=== PATIENT | male | born 1950 | race African-American/Black ===

== ENCOUNTER 2017-06-06 14:13 | Inpatient (IN) ==
[2017-06-06] MEDS ORDERED: ACETAMINOPHEN 325 MG TABLET PO PRN (14:20)
[2017-06-06] MEDS ORDERED: DOCUSATE SODIUM 100 MG CAPSULE PO PRN (14:20)
[2017-06-06 16:24] LABS: Basophils % 0.3 % (0.0-0.8); Eosinophils % 0.4 % (0.00-10.9); Hematocrit 45.9 VOL% (42.0-52.0); Hemoglobin 15.1 GM/DL (14.0-18.0); Immature Granulocytes % 0.3 %; Immature Granulocytes Absolute 0.03 #; Lymphocytes # 2.1 10*3/uL (1.4-4.0); Lymphocytes % 23.8 % (21.2-54.2); Mean Corpuscular HGB Conc 32.9 GM/DL (32-36); Mean Corpuscular Hemoglobin 30 PG (27-34); Mean Platelet Volume 11.5 FL (9.6-12.0); Monocytes % 11.1 % (1.7-12.7); Neutrophils # 5.8 10*3/uL (1.4-7.4); Neutrophils % 64.1 % (38.7-73.9); Platelet Count 219 T/CUMM (130-400); Red Cell Distribution Width 15.6 % (9.3-17.3)
[2017-06-06 16:55] LABS: Albumin 3.5 G/DL (3.4-5.0); Bilirubin,Total 0.9 MG/DL (0.2-1.0); Calcium 9.6 MG/DL (8.5-10.1); Osmolality,Calculated 280.4 MOS/KG (273-304); Potassium 4.5 MMOL/L (3.5-5.1); Thyroid Stimulating Hormone 1.78 uIU/ml (0.358-3.74); Total Protein 7.4 G/DL (6.4-8.3)
[2017-06-06 17:10] LABS: Apearance,Urine Slightly Hazy (Clear); Bilirubin,Urine Negative (Negative); Blood, Urine Negative (Negative); Glucose,Urine (UA) Negative (Negative); Ketones,Urine 5 mg/dL (Negative); Mucus,Urine Occasional /LPF (Occasional); Nitrite,Urine Negative (Negative); Protein,Urine Negative; RBC,Urine <1 /HPF (0-4); Squamous Epithelial Cell,Urine Occasional /HPF (0-10); Urine Color Yellow (Yellow); Urine Specific Gravity 1.012 (1.001-1.035); Urine Urobilinogen < 2.0 EU/DL (0.2-1.0); WBC,Urine 2 /HPF (0-6)
[2017-06-06] MEDS ORDERED: DILTIAZEM INJ 100 MG in SODIUM CHLORIDE 0.9% 100 ML IV SCH (18:00)
[2017-06-06 18:08] LABS: CKMB % 1.4 %
[2017-06-06 18:10] LABS: Troponin I Only 0.08 NG/ML (0.00-0.045)
[2017-06-06] MEDS: FUROSEMIDE 40 MG/4 ML VIAL IV SCH (18:11)
[2017-06-06] MEDS: METOPROLOL TARTRATE 25 MG TABLET PO SCH (21:11)
[2017-06-06] MEDS: APIXABAN 5 MG TABLET PO SCH (21:11)
[2017-06-07 04:51] LABS: Basophils % 0.5 % (0.0-0.8); Eosinophils # 0.1 10*3/uL (0.0-0.87); Eosinophils % 1.2 % (0.00-10.9); Hematocrit 40.3 VOL% (42.0-52.0); Hemoglobin 13.2 GM/DL (14.0-18.0); Immature Granulocytes % 0.2 %; Immature Granulocytes Absolute 0.01 #; Lymphocytes % 30.5 % (21.2-54.2); Mean Corpuscular HGB Conc 32.8 GM/DL (32-36); Mean Corpuscular Hemoglobin 30 PG (27-34); Mean Corpuscular Volume 90.6 FL (87-102); Mean Platelet Volume 11.2 FL (9.6-12.0); Monocytes # 0.7 10*3/uL (0.11-0.8); Monocytes % 11.1 % (1.7-12.7); Neutrophils # 3.7 10*3/uL (1.4-7.4); Neutrophils % 56.5 % (38.7-73.9); Platelet Count 201 T/CUMM (130-400); Red Blood Count 4.45 MC/CUMM (3.8-5.5); Red Cell Distribution Width 15.3 % (9.3-17.3); White Blood Count 6.6 T/CUMM (4-12)
[2017-06-07 05:22] LABS: Calcium 9.3 MG/DL (8.5-10.1); Potassium 4.2 MMOL/L (3.5-5.1)
[2017-06-07] MEDS: COENZYME Q10 100 MG CAPSULE PO SCH (10:22)
[2017-06-07] MEDS: LISINOPRIL 2.5 MG TABLET PO SCH (10:22)
[2017-06-07] MEDS: CYANOCOBALAMIN 100 MCG TABLET PO SCH (10:22)
[2017-06-07] MEDS: ASPIRIN CHEW 81 MG TABLET PO SCH (10:22)
[2017-06-07] MEDS: PANTOPRAZOLE 40 MG TABLET PO SCH (10:23)
[2017-06-07] MEDS: METOPROLOL TARTRATE 25 MG TABLET PO SCH ×2 (10:23→21:33)
[2017-06-07] MEDS: FUROSEMIDE 40 MG/4 ML VIAL IV SCH (10:23)
[2017-06-07] MEDS: MULTIVITAMIN (CENTRUM) TABLET PO SCH (10:23)
[2017-06-07] MEDS: FUROSEMIDE 40 MG TABLET PO SCH (10:23)
[2017-06-07] MEDS: APIXABAN 5 MG TABLET PO SCH ×2 (10:23→21:33)
[2017-06-07] MEDS ORDERED: PROPOFOL 200 MG/20 ML VIAL IV ONE (13:59)
[2017-06-07] MEDS: FAMOTIDINE 20 MG TABLET PO PRN ×2 (16:40→21:33)
[2017-06-07] MEDS: ALUMINUM/MAGNES/SIMETH MAX STR 30 ML UDCUP PO PRN ×2 (16:40→21:33)
[2017-06-08 05:12] LABS: Basophils % 0.5 % (0.0-0.8); Eosinophils # 0.1 10*3/uL (0.0-0.87); Eosinophils % 1.8 % (0.00-10.9); Hematocrit 40.7 VOL% (42.0-52.0); Lymphocytes # 2.1 10*3/uL (1.4-4.0); Lymphocytes % 34.9 % (21.2-54.2); Mean Corpuscular HGB Conc 31.9 GM/DL (32-36); Mean Corpuscular Hemoglobin 29 PG (27-34); Mean Corpuscular Volume 90.4 FL (87-102); Mean Platelet Volume 10.8 FL (9.6-12.0); Monocytes # 0.6 10*3/uL (0.11-0.8); Monocytes % 9.8 % (1.7-12.7); Neutrophils # 3.3 10*3/uL (1.4-7.4); Platelet Count 199 T/CUMM (130-400); Red Cell Distribution Width 15.2 % (9.3-17.3); White Blood Count 6.1 T/CUMM (4-12)
[2017-06-08 05:46] LABS: Calcium 9.2 MG/DL (8.5-10.1); Osmolality,Calculated 284.3 MOS/KG (273-304)
[2017-06-08] MEDS: LISINOPRIL 2.5 MG TABLET PO SCH (09:27)
[2017-06-08] MEDS: COENZYME Q10 100 MG CAPSULE PO SCH (09:27)
[2017-06-08] MEDS: ASPIRIN CHEW 81 MG TABLET PO SCH (09:27)
[2017-06-08] MEDS: PANTOPRAZOLE 40 MG TABLET PO SCH (09:28)
[2017-06-08] MEDS: FUROSEMIDE 40 MG TABLET PO SCH (09:28)
[2017-06-08] MEDS: METOPROLOL TARTRATE 25 MG TABLET PO SCH (09:28)
[2017-06-08] MEDS: APIXABAN 5 MG TABLET PO SCH (09:28)
[2017-06-08] MEDS: MULTIVITAMIN (CENTRUM) TABLET PO SCH (09:28)
[2017-06-08] MEDS: CYANOCOBALAMIN 100 MCG TABLET PO SCH (09:28)
[2017-06-08 11:40] VITALS: BP 126/85
[2017-06-08] MEDS ORDERED: FUROSEMIDE 40 MG TABLET PO SCH (12:00)
== END 2017-06-08 14:44 | disposition home or self-care (01) | DRG 308 ==
LOC: N.TELES 14:39
PROVIDERS: ADMIT Internal Medicine Pulmonary Disease; ATTEND Internal Medicine Pulmonary Disease

== ENCOUNTER 2017-08-22 09:37 | Inpatient (IN) ==
[~2017-08-22 09:37] MED LIST: DEXTROSE 50% 25 GM/50 ML VIAL IV PRN; GLUCAGON 1 MG VIAL IM PRN; UBIDECARENONE 50 MG PO SCH
[2017-08-22 10:31] LABS: Basophils % 0.1 % (0.0-0.8); Eosinophils % 0.4 % (0.00-10.9); Hematocrit 36.2 VOL% (42.0-52.0); Immature Granulocytes % 0.3 %; Immature Granulocytes Absolute 0.02 #; Lymphocytes # 0.9 10*3/uL (1.4-4.0); Lymphocytes % 11.7 % (21.2-54.2); Mean Corpuscular HGB Conc 33.1 GM/DL (32-36); Mean Corpuscular Hemoglobin 29 PG (27-34); Mean Corpuscular Volume 87.4 FL (87-102); Mean Platelet Volume 10.7 FL (9.6-12.0); Monocytes # 0.5 10*3/uL (0.11-0.8); Monocytes % 7.2 % (1.7-12.7); Neutrophils % 80.3 % (38.7-73.9); Platelet Count 172 T/CUMM (130-400); Red Blood Count 4.14 MC/CUMM (3.8-5.5); Red Cell Distribution Width 14.2 % (9.3-17.3); White Blood Count 7.5 T/CUMM (4-12)
[2017-08-22 11:03] LABS: Albumin 2.9 G/DL (3.4-5.0); Bilirubin,Total 0.5 MG/DL (0.2-1.0); Calcium 9.7 MG/DL (8.5-10.1); Osmolality,Calculated 276.7 MOS/KG (273-304); Potassium 3.8 MMOL/L (3.5-5.1); Total Protein 7.8 G/DL (6.4-8.3)
[2017-08-22] MEDS: CHLORHEXIDINE 0.12% ORAL RINSE 60 ML BOTTLE SWISH/SPIT SCH ×2 (11:53→21:21)
[2017-08-22] MEDS: sitaGLIPtin 100 MG TABLET PO SCH (11:59)
[2017-08-22] MEDS: PANTOPRAZOLE 40 MG TABLET PO SCH (11:59)
[2017-08-22] MEDS: LISINOPRIL 2.5 MG TABLET PO SCH (11:59)
[2017-08-22] MEDS: CYANOCOBALAMIN 100 MCG TABLET PO SCH (14:00)
[2017-08-22] MEDS: MULTIVITAMIN (CENTRUM) TABLET PO SCH (14:00)
[2017-08-22 15:17] LABS: ABG Base Excess 1.7 MMOL/L (-2.5-2.5); ABG HCO3 25.9 MMOL/L (20-26); ABG Oxygen Saturation 96.4 % (95-100); ABG PCO2 38.5 MM HG (35-48); ABG PH 7.435 (7.35-7.45); ABG PO2 89.6 MM HG (80-95); ABG TCO2 22.7 MMOL/L (23-27)
[2017-08-22] MEDS: CHLORHEXIDINE 4% SOLN 118 ML BOTTLE TOP SCH ×2 (17:03→21:21)
[2017-08-22] MEDS ORDERED: ASPIRIN EC 81 MG TABLET PO SCH (21:00)
[2017-08-22] MEDS: METOPROLOL TARTRATE 25 MG TABLET PO SCH (21:21)
[2017-08-23] MEDS: CHLORHEXIDINE 4% SOLN 118 ML BOTTLE TOP SCH ×2 (04:59→09:13)
[2017-08-23] MEDS ORDERED: VANCOMYCIN 1,000 MG VIAL ONE (05:19)
[2017-08-23] MEDS ORDERED: PAPAVERINE 60 MG/2 ML VIAL ONE (05:19)
[2017-08-23] MEDS ORDERED: DIAZEPAM 5 MG TABLET ONE (05:35)
[2017-08-23] MEDS ORDERED: FAMOTIDINE 20 MG TABLET ONE (05:36)
[2017-08-23] MEDS: LISINOPRIL 2.5 MG TABLET PO SCH ×2 (05:41→09:13)
[2017-08-23] MEDS: METOPROLOL TARTRATE 25 MG TABLET PO SCH ×2 (05:41→09:13)
[2017-08-23] MEDS: PANTOPRAZOLE 40 MG TABLET PO SCH ×2 (05:41→09:13)
[2017-08-23] MEDS: CHLORHEXIDINE 0.12% ORAL RINSE 60 ML BOTTLE SWISH/SPIT SCH ×3 (05:42→21:01)
[2017-08-23] MEDS ORDERED: CEFUROXIME INJ 1,500 MG in SYRINGE 1 EACH IV ONE (06:30)
[2017-08-23] MEDS ORDERED: DIAZEPAM 5 MG TABLET PO ONE (07:00)
[2017-08-23] MEDS ORDERED: FAMOTIDINE 20 MG TABLET PO ONE (07:00)
[2017-08-23 07:35] LABS: ABG Base Excess 1.1 MMOL/L (-2.5-2.5); ABG HCO3 25.4 MMOL/L (20-26); ABG Oxygen Saturation 99.5 % (95-100); ABG PCO2 31.4 MM HG (35-48); ABG PH 7.488 (7.35-7.45); ABG TCO2 21.2 MMOL/L (23-27); Glucose Heart Surgery 112 MG/DL (74-106); Hematocrit Heart Surgery 34.6 PERCENT (42-52); Hemoglobin Heart Surgery 11.2 G/DL (14.0-18.0); Ionized Calcium Arterial 1.23 MMOL/L (1.21-1.46); PCO2 Patient Temp Arterial 31.4 MMHG; PH Patient Temp Arterial 7.488; Patient Temperature 37 CELCIUS; Potassium Heart/CVR 3.5 MMOL/L (3.5-5.1); Sodium Heart/CVR 136 MMOL/L (135-145)
[2017-08-23 08:02] LABS: Apearance,Urine CLEAR (Clear); Bilirubin,Urine Negative (Negative); Blood, Urine Negative (Negative); Glucose,Urine (UA) Negative (Negative); Ketones,Urine Negative (Negative); Mucus,Urine Occasional /LPF (Occasional); Nitrite,Urine Negative (Negative); Protein,Urine Negative; RBC,Urine 1 /HPF (0-4); Squamous Epithelial Cell,Urine Occasional /HPF (0-10); Urine Color Yellow (Yellow); Urine Specific Gravity 1.016 (1.001-1.035); Urine Urobilinogen < 2.0 EU/DL (0.2-1.0); WBC,Urine 3 /HPF (0-6)
[2017-08-23] MEDS ORDERED: NITROPRUSSIDE 50 MG/2 ML VIAL ONE (08:12)
[2017-08-23] MEDS ORDERED: POTASSIUM CHLORIDE RIDER 100 ML IV ONE (08:14)
[2017-08-23] MEDS ORDERED: PHENYLEPHRINE DRIP 40 MG/250 ML PREMIX IV ONE (08:14)
[2017-08-23] MEDS: SODIUM CHLORIDE 0.9% 1,000 ML IV SCH ×2 (09:12→09:14)
[2017-08-23] MEDS: CYANOCOBALAMIN 100 MCG TABLET PO SCH (09:13)
[2017-08-23] MEDS: sitaGLIPtin 100 MG TABLET PO SCH (09:13)
[2017-08-23] MEDS: MULTIVITAMIN (CENTRUM) TABLET PO SCH (09:13)
[2017-08-23 09:25] LABS: Hematocrit Heart Surgery 23.2 PERCENT (42-52); Hemoglobin Heart Surgery 7.4 G/DL (14.0-18.0); PCO2 Patient Temp Venous 31.1 MM HG; PH Patient Temp Venous 7.49; PO2 Patient Temp Venous 39.2 MM HG; Potassium Heart/CVR 4.1 MMOL/L (3.5-5.1); VBG Base Excess 0.8 MEQ/L (0-4); VBG HCO3 24.9 MEQ/L (24-28); VBG Oxygen Saturation 81.7 %; VBG PCO2 34.3 MMHG (41-51); VBG PH 7.46
[2017-08-23 09:57] LABS: Hematocrit Heart Surgery 25.5 PERCENT (42-52); Hemoglobin Heart Surgery 8.2 G/DL (14.0-18.0); PCO2 Patient Temp Venous 29.7 MM HG; PH Patient Temp Venous 7.506; PO2 Patient Temp Venous 36.8 MM HG; Potassium Heart/CVR 3.7 MMOL/L (3.5-5.1); VBG Base Excess 0.9 MEQ/L (0-4); VBG Oxygen Saturation 81.7 %; VBG PCO2 34.3 MMHG (41-51); VBG PH 7.461; VBG PO2 45.2 MMHG (17-40)
[2017-08-23] MEDS ORDERED: SODIUM BICARBONATE 50 MEQ/50 ML SYRINGE IV ONE ×2 (09:58→10:54)
[2017-08-23] MEDS ORDERED: EPINEPHrine 1 MG/10 ML SYRINGE ONE (09:59)
[2017-08-23] MEDS ORDERED: ATROPINE 1 MG/10 ML SYRINGE ONE (09:59)
[2017-08-23] MEDS ORDERED: CALCIUM CHLORIDE 1,000 MG/10 ML SYRINGE IV ONE (09:59)
[2017-08-23] MEDS ORDERED: ALBUMIN 5% 12.5 GM/250 ML VIAL IV ONE (10:14)
[2017-08-23 10:29] LABS: Hematocrit Heart Surgery 26.9 PERCENT (42-52); Hemoglobin Heart Surgery 8.7 G/DL (14.0-18.0); PCO2 Patient Temp Venous 34.5 MM HG; PH Patient Temp Venous 7.466; PO2 Patient Temp Venous 40.3 MM HG; VBG Base Excess 1.4 MEQ/L (0-4); VBG HCO3 25.3 MEQ/L (24-28); VBG Oxygen Saturation 74.8 %; VBG PCO2 34.5 MMHG (41-51); VBG PH 7.466; VBG PO2 40.3 MMHG (17-40)
[2017-08-23] MEDS ORDERED: ALBUMIN 25% 25 GM/100 ML VIAL IV ONE (10:52)
[2017-08-23] MEDS ORDERED: DEXTROSE 5% KCL 20 MEQ 20 MEQ/1,000 ML BAG IV ONE (10:52)
[2017-08-23] MEDS ORDERED: HEPARIN 10,000 UNIT/10 ML VIAL ONE (10:52)
[2017-08-23] MEDS ORDERED: FUROSEMIDE 20 MG/2 ML VIAL ONE (10:54)
[2017-08-23] MEDS ORDERED: MAGNESIUM SULFATE 1 GM/2 ML VIAL ONE (10:54)
[2017-08-23] MEDS ORDERED: MANNITOL 12.5 GM/50 ML VIAL IV ONE (10:54)
[2017-08-23] MEDS ORDERED: methylPREDNISolone SOD SUC 1,000 MG/8 ML VIAL ONE (10:54)
[2017-08-23] MEDS ORDERED: PROTAMINE SULFATE 50 MG/5 ML VIAL IV ONE ×3 (10:54→12:10)
[2017-08-23] MEDS ORDERED: PROTAMINE SULFATE 250 MG/25 ML VIAL IV ONE (10:54)
[2017-08-23] MEDS ORDERED: PHENYLEPHRINE 1 MG/10 ML SYRINGE IV ONE (10:55)
[2017-08-23 10:59] LABS: ABG Base Excess 0.1 MMOL/L (-2.5-2.5); ABG HCO3 24.5 MMOL/L (20-26); ABG Oxygen Saturation 99.5 % (95-100); ABG PCO2 34.7 MM HG (35-48); ABG PH 7.444 (7.35-7.45); ABG TCO2 21.8 MMOL/L (23-27); Glucose Heart Surgery 224 MG/DL (74-106); Hematocrit Heart Surgery 28.8 PERCENT (42-52); Hemoglobin Heart Surgery 9.3 G/DL (14.0-18.0); Ionized Calcium Arterial 1.31 MMOL/L (1.21-1.46); PCO2 Patient Temp Arterial 34.7 MMHG; PH Patient Temp Arterial 7.444; Patient Temperature 37 CELCIUS; Potassium Heart/CVR 3.6 MMOL/L (3.5-5.1); Sodium Heart/CVR 135 MMOL/L (135-145)
[2017-08-23] MEDS ORDERED: NITROGLYCERIN DRIP 50 MG/250 ML BOTTLE IV ONE ×2 (11:34→11:59)
[2017-08-23] MEDS: LACTATED RINGERS 250 ML IV PRN ×11 (11:50→17:00)
[2017-08-23] MEDS ORDERED: HEPARIN/NACL 0.9% 2 UNITS/ML 500 ML IV ONE (11:57)
[2017-08-23] MEDS ORDERED: CALCIUM CHLORIDE 1,000 MG/10 ML VIAL IV ONE (11:57)
[2017-08-23] MEDS ORDERED: SUFentanil 250 MCG/5 ML AMP ONE ×2 (11:57→11:58)
[2017-08-23] MEDS ORDERED: SEVOFLURANE 1 UNIT/15 MINUTE INH ONE (11:57)
[2017-08-23] MEDS ORDERED: MIDAZOLAM 10 MG/2 ML VIAL ONE (11:58)
[2017-08-23] MEDS ORDERED: VECURONIUM 10 MG VIAL IV ONE (11:58)
[2017-08-23] MEDS ORDERED: ePHEDrine 50 MG/ML AMP ONE (11:58)
[2017-08-23] MEDS ORDERED: PHENYLEPHRINE 10 MG/1 ML VIAL IV ONE (11:58)
[2017-08-23] MEDS ORDERED: ETOMIDATE 40 MG/20 ML VIAL IV ONE (11:59)
[2017-08-23] MEDS ORDERED: ACETAMINOPHEN 650 MG SUPP RECTAL PRN (11:59)
[2017-08-23] MEDS ORDERED: VECURONIUM 10 MG VIAL IV PRN ×2 (11:59)
[2017-08-23] MEDS ORDERED: MAGNESIUM SULF RIDER 4 GM in PREMIX 1 EACH IV PRN (11:59)
[2017-08-23] MEDS ORDERED: ONDANSETRON 4 MG/2 ML VIAL IV PRN (11:59)
[2017-08-23] MEDS ORDERED: MORPHINE 4 MG/1 ML VIAL IV PRN (11:59)
[2017-08-23] MEDS ORDERED: MORPHINE 10 MG/1 ML VIAL IV PRN (11:59)
[2017-08-23] MEDS ORDERED: INSULIN REGULAR 100 UNIT/ML IV ONE (11:59)
[2017-08-23] MEDS ORDERED: SODIUM CHLORIDE 0.9% 200 ML IV ONE (11:59)
[2017-08-23] MEDS ORDERED: LACTATED RINGERS 2,000 ML IV ONE (11:59)
[2017-08-23] MEDS ORDERED: POTASSIUM CHLORIDE RIDER 10 MEQ in PREMIX 1 EACH IV PRN (11:59)
[2017-08-23] MEDS ORDERED: NITROPRUSSIDE 100 MG in DEXTROSE 5% 250 ML IV PRN (11:59)
[2017-08-23] MEDS ORDERED: CALCIUM CHLORIDE 1,000 MG/10 ML SYRINGE IV PRN (11:59)
[2017-08-23] MEDS ORDERED: PHENYLEPHRINE DRIP 40 MG/250 ML PREMIX IV PRN (11:59)
[2017-08-23] MEDS ORDERED: MAGNESIUM SULF RIDER 2 GM in PREMIX 1 EACH IV PRN (11:59)
[2017-08-23] MEDS ORDERED: AMINOCAPROIC ACID 5,000 MG/20 ML VIAL IV ONE (11:59)
[2017-08-23] MEDS ORDERED: INSULIN REGULAR 100 UNIT/ML IV PRN (11:59)
[2017-08-23] MEDS ORDERED: SODIUM CHLORIDE 0.9% 2,000 ML IV ONE (11:59)
[2017-08-23] MEDS ORDERED: MIDAZOLAM 2 MG/2 ML VIAL IV PRN (11:59)
[2017-08-23] MEDS ORDERED: DEXTROSE 50% 25 GM/50 ML VIAL IV PRN ×2 (11:59)
[2017-08-23] MEDS ORDERED: SODIUM CHLORIDE 0.9% 250 ML IV ONE ×2 (11:59)
[2017-08-23] MEDS ORDERED: MIDAZOLAM 10 MG/2 ML VIAL IV PRN (11:59)
[2017-08-23] MEDS ORDERED: SODIUM CHLORIDE 0.45% 1,000 ML IV SCH ×2 (12:00)
[2017-08-23] MEDS ORDERED: INSULIN REGULAR DRIP 100 ML IV SCH (12:00)
[2017-08-23 12:27] LABS: ABG Base Excess 0.1 MMOL/L (-2.5-2.5); ABG HCO3 24.5 MMOL/L (20-26); ABG Oxygen Saturation 98.5 % (95-100); ABG PCO2 36.5 MM HG (35-48); ABG PH 7.428 (7.35-7.45); ABG TCO2 21.9 MMOL/L (23-27); Basophils % 0.2 % (0.0-0.8); Eosinophils % 0.5 % (0.00-10.9); Glucose Heart Surgery 194 MG/DL (74-106); Hematocrit 28.7 VOL% (42.0-52.0); Hematocrit Heart Surgery 30.6 PERCENT (42-52); Hemoglobin Heart Surgery 9.9 G/DL (14.0-18.0); Immature Granulocytes % 0.4 %; Immature Granulocytes Absolute 0.02 #; Lymphocytes # 1.1 10*3/uL (1.4-4.0); Lymphocytes % 18.9 % (21.2-54.2); Mean Corpuscular HGB Conc 34.5 GM/DL (32-36); Mean Corpuscular Hemoglobin 30 PG (27-34); Mean Corpuscular Volume 85.4 FL (87-102); Mean Platelet Volume 10.8 FL (9.6-12.0); Monocytes # 0.5 10*3/uL (0.11-0.8); Potassium Heart/CVR 3.4 MMOL/L (3.5-5.1); Red Blood Count 3.36 MC/CUMM (3.8-5.5); Red Cell Distribution Width 14.1 % (9.3-17.3); White Blood Count 5.7 T/CUMM (4-12)
[2017-08-23] MEDS: POTASSIUM CHLORIDE RIDER 20 MEQ in PREMIX 1 EACH IV PRN ×4 (12:30→22:39)
[2017-08-23 12:33] LABS: Hemoglobin 9.9 GM/DL (14.0-18.0); Platelet Count 123 T/CUMM (130-400)
[2017-08-23 12:39] LABS: INR 1.4; PT Patient Result 15.1 SECS; Partial Thromboplastin Time 34.5 SECS (0-40)
[2017-08-23 12:45] LABS: Albumin 2.7 G/DL (3.4-5.0); Bilirubin,Total 0.9 MG/DL (0.2-1.0); Calcium 8.7 MG/DL (8.5-10.1); Osmolality,Calculated 284.3 MOS/KG (273-304); Potassium 3.5 MMOL/L (3.5-5.1); Total Protein 6.1 G/DL (6.4-8.3)
[2017-08-23 12:46] LABS: Band Neutrophils 14 % (0-10); Eosinophils 1 % (0-10); Hypochromasia 1+; Lymphocytes 15 % (20-55); Microcytosis 1+; Platelet Estimate Adequate; Segmented Neutrophils 66 % (50-85); Total Cells Counted 100
[2017-08-23 12:48] LABS: CKMB % 4.9 %
[2017-08-23 13:11] LABS: HIV Antigen/Antibody Result Nonreactive (Nonreactive); Hepatitis B Surface Ag Quant < 0.10 Index; Hepatitis B Surface Ag Result Negative (Negative); Hepatitis C Virus Ab Quant 0.13 Index; Hepatitis C Virus Ab Result Negative (Negative)
[2017-08-23] MEDS: ALBUMIN 5% 12.5 GM in PREMIX 1 EACH IV PRN ×4 (13:13→16:00)
[2017-08-23] MEDS: KETOROLAC 30 MG/1 ML VIAL IV SCH ×2 (13:16→18:44)
[2017-08-23 14:28] LABS: ABG Base Excess 0.5 MMOL/L (-2.5-2.5); ABG HCO3 24.9 MMOL/L (20-26); ABG Oxygen Saturation 98.7 % (95-100); ABG PCO2 34.3 MM HG (35-48); ABG PH 7.452 (7.35-7.45); ABG TCO2 21.3 MMOL/L (23-27); Glucose Heart Surgery 153 MG/DL (74-106); Hematocrit Heart Surgery 35.2 PERCENT (42-52); Hemoglobin Heart Surgery 11.4 G/DL (14.0-18.0); Potassium Heart/CVR 3.6 MMOL/L (3.5-5.1)
[2017-08-23 18:16] LABS: ABG Base Excess -0.1 MMOL/L (-2.5-2.5); ABG HCO3 24.4 MMOL/L (20-26); ABG Oxygen Saturation 98.4 % (95-100); ABG PH 7.335 (7.35-7.45); ABG TCO2 24.2 MMOL/L (23-27); Glucose Heart Surgery 100 MG/DL (74-106); Hematocrit Heart Surgery 28.6 PERCENT (42-52); Hemoglobin Heart Surgery 9.2 G/DL (14.0-18.0); Potassium Heart/CVR 3.9 MMOL/L (3.5-5.1)
[2017-08-23 20:18] LABS: ABG Base Excess 0.3 MMOL/L (-2.5-2.5); ABG HCO3 26.2 MMOL/L (20-26); ABG Oxygen Saturation 98.1 % (95-100); ABG PCO2 48.4 MM HG (35-48); ABG PH 7.352 (7.35-7.45); ABG TCO2 27.7 MMOL/L (23-27); Glucose Heart Surgery 109 MG/DL (74-106); Potassium Heart/CVR 4.2 MMOL/L (3.5-5.1)
[2017-08-23 20:44] LABS: CKMB % 3.5 %
[2017-08-23] MEDS: CEFUROXIME INJ 1,500 MG in SYRINGE 1 EACH IV SCH (21:01)
[2017-08-23 22:03] LABS: ABG Base Excess -0.5 MMOL/L (-2.5-2.5); ABG Oxygen Saturation 97.8 % (95-100); ABG PCO2 43.8 MM HG (35-48); ABG PH 7.364 (7.35-7.45); ABG TCO2 22.7 MMOL/L (23-27); Glucose Heart Surgery 132 MG/DL (74-106); Hematocrit Heart Surgery 31.3 PERCENT (42-52); Hemoglobin Heart Surgery 10.1 G/DL (14.0-18.0); Potassium Heart/CVR 4.5 MMOL/L (3.5-5.1)
[2017-08-23] MEDS ORDERED: FUROSEMIDE 40 MG/4 ML VIAL IV ONE (22:34)
[2017-08-24] MEDS: KETOROLAC 30 MG/1 ML VIAL IV SCH ×5 (00:38→21:11)
[2017-08-24] MEDS ORDERED: NITROGLYCERIN DRIP 50 MG/250 ML BOTTLE IV PRN (00:41)
[2017-08-24 04:04] LABS: ABG Base Excess 0.5 MMOL/L (-2.5-2.5); ABG HCO3 24.8 MMOL/L (20-26); ABG Oxygen Saturation 94.4 % (95-100); ABG PCO2 42.2 MM HG (35-48); ABG PH 7.391 (7.35-7.45); ABG PO2 75.4 MM HG (80-95); ABG TCO2 23.3 MMOL/L (23-27); Glucose Heart Surgery 136 MG/DL (74-106); Hematocrit Heart Surgery 30.4 PERCENT (42-52); Hemoglobin Heart Surgery 9.8 G/DL (14.0-18.0); Potassium Heart/CVR 4.2 MMOL/L (3.5-5.1)
[2017-08-24 04:15] LABS: Basophils % 0.1 % (0.0-0.8); Hematocrit 28.1 VOL% (42.0-52.0); Hemoglobin 9.7 GM/DL (14.0-18.0); Immature Granulocytes % 0.5 %; Immature Granulocytes Absolute 0.05 #; Lymphocytes # 0.8 10*3/uL (1.4-4.0); Lymphocytes % 7.8 % (21.2-54.2); Mean Corpuscular HGB Conc 34.5 GM/DL (32-36); Mean Corpuscular Hemoglobin 29 PG (27-34); Mean Corpuscular Volume 83.9 FL (87-102); Mean Platelet Volume 10.8 FL (9.6-12.0); Monocytes # 0.8 10*3/uL (0.11-0.8); Monocytes % 8.2 % (1.7-12.7); Neutrophils # 8.2 10*3/uL (1.4-7.4); Neutrophils % 83.4 % (38.7-73.9); Platelet Count 124 T/CUMM (130-400); Red Blood Count 3.35 MC/CUMM (3.8-5.5); Red Cell Distribution Width 15.7 % (9.3-17.3); White Blood Count 9.9 T/CUMM (4-12)
[2017-08-24 04:45] LABS: Albumin 2.8 G/DL (3.4-5.0); Bilirubin,Direct 0.13 MG/DL (0.0-0.20); Bilirubin,Total 0.4 MG/DL (0.2-1.0); CKMB % 2.9 %; Calcium 9.6 MG/DL (8.5-10.1); Osmolality,Calculated 279.4 MOS/KG (273-304); Potassium 4.3 MMOL/L (3.5-5.1); Total Protein 6.3 G/DL (6.4-8.3)
[2017-08-24 04:57] LABS: Band Neutrophils 10 % (0-10); Lymphocytes 14 % (20-55); Platelet Estimate Normal; Segmented Neutrophils 72 % (50-85); Total Cells Counted 100
[2017-08-24] MEDS: POTASSIUM CHLORIDE RIDER 20 MEQ in PREMIX 1 EACH IV PRN (05:14)
[2017-08-24] MEDS: INSULIN REGULAR 100 UNIT/ML SUBCUT SCH ×5 (07:39→23:58)
[2017-08-24] MEDS: sitaGLIPtin 100 MG TABLET PO SCH (08:03)
[2017-08-24] MEDS: CEFUROXIME INJ 1,500 MG in SYRINGE 1 EACH IV SCH (08:03)
[2017-08-24] MEDS: CYANOCOBALAMIN 100 MCG TABLET PO SCH (08:03)
[2017-08-24] MEDS: LISINOPRIL 2.5 MG TABLET PO SCH (08:03)
[2017-08-24] MEDS: MULTIVITAMIN (CENTRUM) TABLET PO SCH (08:03)
[2017-08-24] MEDS: CHLORHEXIDINE 0.12% ORAL RINSE 60 ML BOTTLE SWISH/SPIT SCH ×3 (08:04→21:13)
[2017-08-24] MEDS ORDERED: MORPHINE 4 MG/1 ML VIAL IV PRN (08:42)
[2017-08-24] MEDS ORDERED: MAGNESIUM SULF RIDER 4 GM in PREMIX 1 EACH IV PRN (08:42)
[2017-08-24] MEDS ORDERED: DEXTROSE 50% 25 GM/50 ML VIAL IV PRN ×2 (08:42)
[2017-08-24] MEDS ORDERED: ACETAMINOPHEN 325 MG TABLET PO PRN (08:42)
[2017-08-24] MEDS ORDERED: MAGNESIUM SULF RIDER 2 GM in PREMIX 1 EACH IV PRN (08:42)
[2017-08-24] MEDS ORDERED: ONDANSETRON 4 MG/2 ML VIAL IV PRN (08:42)
[2017-08-24] MEDS ORDERED: ZALEPLON 5 MG CAPSULE PO PRN (08:42)
[2017-08-24] MEDS ORDERED: GLUCAGON 1 MG VIAL IM PRN ×2 (08:42)
[2017-08-24] MEDS ORDERED: ALUMINUM/MAGNES/SIMETH MAX STR 30 ML UDCUP PO PRN (08:42)
[2017-08-24] MEDS ORDERED: POTASSIUM CHLORIDE 20 MEQ TABLET PO PRN (08:42)
[2017-08-24] MEDS: SODIUM CHLOR 0.45% KCL 20 MEQ 20 MEQ/1,000 ML BAG IV SCH (09:23)
[2017-08-24] MEDS: DOCUSATE SODIUM 100 MG CAPSULE PO SCH (09:24)
[2017-08-24] MEDS: FERROUS SULFATE 325 MG TABLET PO SCH (09:24)
[2017-08-24] MEDS: PANTOPRAZOLE 40 MG TABLET PO SCH (09:24)
[2017-08-24] MEDS ORDERED: AMIODARONE INJ 150 MG in DEXTROSE 5% 100 ML IV ONE (12:59)
[2017-08-24] MEDS ORDERED: METOPROLOL TARTRATE 25 MG TABLET PO SCH (13:00)
[2017-08-24] MEDS ORDERED: AMIODARONE INJ 450 MG in DEXTROSE 5% 241 ML IV SCH (13:00)
[2017-08-24] MEDS: AMIODARONE INJ 450 MG in DEXTROSE 5% 241 ML IV SCH ×2 (16:37→20:28)
[2017-08-24] MEDS: ASPIRIN EC 81 MG TABLET PO SCH (21:10)
[2017-08-25] MEDS: KETOROLAC 30 MG/1 ML VIAL IV SCH ×4 (03:36→21:20)
[2017-08-25] MEDS: INSULIN REGULAR 100 UNIT/ML SUBCUT SCH ×5 (03:45→21:23)
[2017-08-25 04:08] LABS: Basophils % 0.1 % (0.0-0.8); Eosinophils % 0.1 % (0.00-10.9); Hematocrit 28.5 VOL% (42.0-52.0); Hemoglobin 9.3 GM/DL (14.0-18.0); Immature Granulocytes % 1.5 %; Immature Granulocytes Absolute 0.18 #; Lymphocytes # 1.5 10*3/uL (1.4-4.0); Lymphocytes % 12.4 % (21.2-54.2); Mean Corpuscular HGB Conc 32.6 GM/DL (32-36); Mean Corpuscular Hemoglobin 28 PG (27-34); Mean Corpuscular Volume 86.9 FL (87-102); Mean Platelet Volume 11.4 FL (9.6-12.0); Monocytes # 1.3 10*3/uL (0.11-0.8); Monocytes % 10.5 % (1.7-12.7); Neutrophils # 9.2 10*3/uL (1.4-7.4); Neutrophils % 75.4 % (38.7-73.9); Platelet Count 143 T/CUMM (130-400); Red Blood Count 3.28 MC/CUMM (3.8-5.5); White Blood Count 12.1 T/CUMM (4-12)
[2017-08-25 04:33] LABS: Alanine Aminotransferase 22 U/L (16-61); Albumin 2.6 G/DL (3.4-5.0); Alkaline Phosphatase 60 U/L (45-117); Aspartate Amino Transferase 44 U/L (0-37); Blood Urea Nitrogen 22 MG/DL (7-18); Calcium 9.4 MG/DL (8.5-10.1); Glucose 133 MG/DL (74-106); Sodium 139 MMOL/L (136-145); Total Protein 6.4 G/DL (6.4-8.3)
[2017-08-25 04:34] LABS: Osmolality,Calculated 281.5 MOS/KG (273-304); Potassium 4.9 MMOL/L (3.5-5.1)
[2017-08-25 04:35] LABS: Bilirubin,Direct < 0.100 MG/DL (0.0-0.20); Bilirubin,Indirect 0.5 MG/DL (0.0-1.0)
[2017-08-25 04:43] LABS: Platelet Estimate Normal
[2017-08-25] MEDS ORDERED: FUROSEMIDE 40 MG/4 ML VIAL IV ONE (06:00)
[2017-08-25] MEDS: FERROUS SULFATE 325 MG TABLET PO SCH (08:45)
[2017-08-25] MEDS: DOCUSATE SODIUM 100 MG CAPSULE PO SCH (08:45)
[2017-08-25] MEDS: LISINOPRIL 2.5 MG TABLET PO SCH (08:45)
[2017-08-25] MEDS: CYANOCOBALAMIN 100 MCG TABLET PO SCH (08:45)
[2017-08-25] MEDS: MAGNESIUM HYDROXIDE SUSP 30 ML UDCUP PO PRN ×2 (08:46→23:02)
[2017-08-25] MEDS: PANTOPRAZOLE 40 MG TABLET PO SCH (08:46)
[2017-08-25] MEDS: sitaGLIPtin 100 MG TABLET PO SCH (08:46)
[2017-08-25] MEDS: SODIUM CHLOR 0.45% KCL 20 MEQ 20 MEQ/1,000 ML BAG IV SCH (08:52)
[2017-08-25] MEDS: CHLORHEXIDINE 0.12% ORAL RINSE 60 ML BOTTLE SWISH/SPIT SCH ×2 (08:53→21:19)
[2017-08-25] MEDS: MULTIVITAMIN (CENTRUM) TABLET PO SCH (08:53)
[2017-08-25] MEDS: oxyCODONE/ACETAMINOPHEN 5-325 MG TABLET PO PRN (19:30)
[2017-08-25] MEDS: ASPIRIN EC 81 MG TABLET PO SCH (21:19)
[2017-08-26] MEDS: INSULIN REGULAR 100 UNIT/ML SUBCUT SCH ×6 (00:08→21:56)
[2017-08-26] MEDS: KETOROLAC 30 MG/1 ML VIAL IV SCH ×4 (03:57→21:53)
[2017-08-26 05:30] LABS: Basophils % 0.1 % (0.0-0.8); Eosinophils # 0.1 10*3/uL (0.0-0.87); Eosinophils % 0.4 % (0.00-10.9); Hematocrit 28.5 VOL% (42.0-52.0); Hemoglobin 9.4 GM/DL (14.0-18.0); Immature Granulocytes % 1.9 %; Immature Granulocytes Absolute 0.22 #; Lymphocytes # 1.5 10*3/uL (1.4-4.0); Lymphocytes % 12.9 % (21.2-54.2); Mean Corpuscular Hemoglobin 29 PG (27-34); Mean Corpuscular Volume 86.6 FL (87-102); Monocytes # 1.1 10*3/uL (0.11-0.8); Monocytes % 9.1 % (1.7-12.7); NRBC # 0.02 10*3/uL; Neutrophils # 8.7 10*3/uL (1.4-7.4); Neutrophils % 75.6 % (38.7-73.9); Platelet Count 161 T/CUMM (130-400); Red Blood Count 3.29 MC/CUMM (3.8-5.5); Red Cell Distribution Width 15.9 % (9.3-17.3); White Blood Count 11.5 T/CUMM (4-12)
[2017-08-26 05:55] LABS: Band Neutrophils 1 % (0-10); Eosinophils 2 % (0-10); Hypochromasia 1+; Lymphocytes 15 % (20-55); Microcytosis Slight; Platelet Estimate Normal; Segmented Neutrophils 76 % (50-85); Total Cells Counted 100
[2017-08-26 06:02] LABS: Bilirubin,Direct < 0.100 MG/DL (0.0-0.20); Bilirubin,Indirect 0.4 MG/DL (0.0-1.0)
[2017-08-26 06:06] LABS: Alanine Aminotransferase 30 U/L (16-61); Albumin 2.3 G/DL (3.4-5.0); Alkaline Phosphatase 68 U/L (45-117); Aspartate Amino Transferase 35 U/L (0-37); Blood Urea Nitrogen 19 MG/DL (7-18); Calcium 8.9 MG/DL (8.5-10.1); Glucose 135 MG/DL (74-106); Osmolality,Calculated 278.7 MOS/KG (273-304); Potassium 4.3 MMOL/L (3.5-5.1); Sodium 138 MMOL/L (136-145); Total Protein 6.2 G/DL (6.4-8.3)
[2017-08-26] MEDS: LISINOPRIL 2.5 MG TABLET PO SCH (09:26)
[2017-08-26] MEDS: DOCUSATE SODIUM 100 MG CAPSULE PO SCH (09:26)
[2017-08-26] MEDS: MAGNESIUM HYDROXIDE SUSP 30 ML UDCUP PO PRN ×3 (09:26→21:35)
[2017-08-26] MEDS: FERROUS SULFATE 325 MG TABLET PO SCH (09:26)
[2017-08-26] MEDS: PANTOPRAZOLE 40 MG TABLET PO SCH (09:27)
[2017-08-26] MEDS: MULTIVITAMIN (CENTRUM) TABLET PO SCH (09:27)
[2017-08-26] MEDS: sitaGLIPtin 100 MG TABLET PO SCH (09:27)
[2017-08-26] MEDS: CYANOCOBALAMIN 100 MCG TABLET PO SCH (09:27)
[2017-08-26] MEDS: CHLORHEXIDINE 0.12% ORAL RINSE 60 ML BOTTLE SWISH/SPIT SCH ×2 (09:27→22:09)
[2017-08-26] MEDS: ASPIRIN EC 81 MG TABLET PO SCH (21:53)
[2017-08-27] MEDS: INSULIN REGULAR 100 UNIT/ML SUBCUT SCH ×6 (00:04→21:11)
[2017-08-27] MEDS: KETOROLAC 30 MG/1 ML VIAL IV SCH (03:34)
[2017-08-27] MEDS: MULTIVITAMIN (CENTRUM) TABLET PO SCH (09:40)
[2017-08-27] MEDS: DOCUSATE SODIUM 100 MG CAPSULE PO SCH (09:40)
[2017-08-27] MEDS: FERROUS SULFATE 325 MG TABLET PO SCH (09:40)
[2017-08-27] MEDS: PANTOPRAZOLE 40 MG TABLET PO SCH (09:41)
[2017-08-27] MEDS: sitaGLIPtin 100 MG TABLET PO SCH (09:41)
[2017-08-27] MEDS: LISINOPRIL 2.5 MG TABLET PO SCH (09:41)
[2017-08-27] MEDS: CYANOCOBALAMIN 100 MCG TABLET PO SCH (09:41)
[2017-08-27] MEDS: CHLORHEXIDINE 0.12% ORAL RINSE 60 ML BOTTLE SWISH/SPIT SCH ×2 (09:42→20:26)
[2017-08-27] MEDS: oxyCODONE/ACETAMINOPHEN 5-325 MG TABLET PO PRN (20:24)
[2017-08-27] MEDS: ASPIRIN EC 81 MG TABLET PO SCH (20:25)
[2017-08-28] MEDS: INSULIN REGULAR 100 UNIT/ML SUBCUT SCH ×6 (01:08→21:11)
[2017-08-28 05:48] LABS: Basophils % 0.2 % (0.0-0.8); Eosinophils # 0.1 10*3/uL (0.0-0.87); Eosinophils % 0.7 % (0.00-10.9); Hematocrit 28.4 VOL% (42.0-52.0); Hemoglobin 9.2 GM/DL (14.0-18.0); Immature Granulocytes % 2.5 %; Lymphocytes # 2.1 10*3/uL (1.4-4.0); Lymphocytes % 17.3 % (21.2-54.2); Mean Corpuscular HGB Conc 32.4 GM/DL (32-36); Mean Corpuscular Hemoglobin 28 PG (27-34); Mean Corpuscular Volume 87.1 FL (87-102); Mean Platelet Volume 10.5 FL (9.6-12.0); Monocytes # 1.3 10*3/uL (0.11-0.8); NRBC # 0.03 10*3/uL; Neutrophils # 8.3 10*3/uL (1.4-7.4); Neutrophils % 68.3 % (38.7-73.9); Platelet Count 234 T/CUMM (130-400); Red Blood Count 3.26 MC/CUMM (3.8-5.5); White Blood Count 12.1 T/CUMM (4-12)
[2017-08-28 05:56] LABS: INR 1.1; PT Patient Result 11.4 SECS
[2017-08-28] MEDS ORDERED: diphenhydrAMINE CAP 25 MG CAPSULE PO ONE (06:00)
[2017-08-28] MEDS ORDERED: DIAZEPAM 5 MG TABLET PO ONE (06:00)
[2017-08-28] MEDS ORDERED: ceFAZolin 1,000 MG in SYRINGE 1 EACH IV ONE (06:00)
[2017-08-28 06:07] LABS: Bilirubin,Indirect 0.3 MG/DL (0.0-1.0); Bilirubin,Total < 0.39 MG/DL (0.2-1.0)
[2017-08-28] MEDS ORDERED: ATROPINE 1 MG/10 ML SYRINGE IV PRN (06:07)
[2017-08-28 06:11] LABS: Alanine Aminotransferase 32 U/L (16-61); Albumin 2.2 G/DL (3.4-5.0); Alkaline Phosphatase 63 U/L (45-117); Aspartate Amino Transferase 22 U/L (0-37); Blood Urea Nitrogen 16 MG/DL (7-18); Glucose 120 MG/DL (74-106); Osmolality,Calculated 280.4 MOS/KG (273-304); Potassium 4.6 MMOL/L (3.5-5.1); Sodium 140 MMOL/L (136-145); Total Protein 6.2 G/DL (6.4-8.3)
[2017-08-28] MEDS: LISINOPRIL 2.5 MG TABLET PO SCH ×2 (06:41→10:27)
[2017-08-28] MEDS ORDERED: HEPARIN/NACL 0.9% 2 UNITS/ML 500 ML IV ONE (06:56)
[2017-08-28] MEDS ORDERED: LIDOCAINE 1%/EPI INJ 20 ML VIAL ONE (06:56)
[2017-08-28] MEDS ORDERED: ceFAZolin 1,000 MG VIAL ONE (06:58)
[2017-08-28] MEDS ORDERED: fentaNYL 100 MCG/2 ML VIAL ONE (07:42)
[2017-08-28] MEDS ORDERED: MIDAZOLAM 2 MG/2 ML VIAL ONE ×2 (07:42→08:48)
[2017-08-28] MEDS: MULTIVITAMIN (CENTRUM) TABLET PO SCH (10:27)
[2017-08-28] MEDS: FERROUS SULFATE 325 MG TABLET PO SCH (10:27)
[2017-08-28] MEDS: CYANOCOBALAMIN 100 MCG TABLET PO SCH (10:27)
[2017-08-28] MEDS: sitaGLIPtin 100 MG TABLET PO SCH (10:27)
[2017-08-28] MEDS: DOCUSATE SODIUM 100 MG CAPSULE PO SCH (10:27)
[2017-08-28] MEDS: CHLORHEXIDINE 0.12% ORAL RINSE 60 ML BOTTLE SWISH/SPIT SCH ×2 (10:28→21:33)
[2017-08-28] MEDS: PANTOPRAZOLE 40 MG TABLET PO SCH (10:28)
[2017-08-28] MEDS: oxyCODONE/ACETAMINOPHEN 5-325 MG TABLET PO PRN ×2 (13:17→18:46)
[2017-08-28] MEDS ORDERED: AMIODARONE INJ 150 MG in DEXTROSE 5% 100 ML IV ONE (18:07)
[2017-08-28] MEDS ORDERED: AMIODARONE 150 MG/3 ML VIAL ONE (18:08)
[2017-08-28] MEDS ORDERED: AMIODARONE INJ 450 MG in DEXTROSE 5% 241 ML IV SCH (18:30)
[2017-08-28] MEDS: ASPIRIN EC 81 MG TABLET PO SCH (21:14)
[2017-08-28] MEDS ORDERED: METOPROLOL TARTRATE 5 MG/5 ML VIAL IV ONE (22:06)
[2017-08-29] MEDS: INSULIN REGULAR 100 UNIT/ML SUBCUT SCH ×6 (00:15→20:32)
[2017-08-29] MEDS: AMIODARONE INJ 450 MG in DEXTROSE 5% 241 ML IV SCH ×2 (01:01→07:03)
[2017-08-29 05:15] LABS: Basophils % 0.2 % (0.0-0.8); Eosinophils # 0.1 10*3/uL (0.0-0.87); Eosinophils % 1.1 % (0.00-10.9); Hematocrit 29.4 VOL% (42.0-52.0); Hemoglobin 9.7 GM/DL (14.0-18.0); Immature Granulocytes % 2.5 %; Immature Granulocytes Absolute 0.33 #; Lymphocytes # 1.5 10*3/uL (1.4-4.0); Lymphocytes % 11.4 % (21.2-54.2); Mean Corpuscular Hemoglobin 29 PG (27-34); Mean Corpuscular Volume 87.8 FL (87-102); Mean Platelet Volume 11.1 FL (9.6-12.0); Monocytes # 1.2 10*3/uL (0.11-0.8); Monocytes % 9.3 % (1.7-12.7); NRBC # 0.02 10*3/uL; Neutrophils % 75.5 % (38.7-73.9); Platelet Count 191 T/CUMM (130-400); Red Blood Count 3.35 MC/CUMM (3.8-5.5); Red Cell Distribution Width 16.4 % (9.3-17.3); White Blood Count 13.3 T/CUMM (4-12)
[2017-08-29 05:36] LABS: Bilirubin,Indirect 0.6 MG/DL (0.0-1.0)
[2017-08-29 05:40] LABS: Alanine Aminotransferase 33 U/L (16-61); Albumin 2.3 G/DL (3.4-5.0); Alkaline Phosphatase 67 U/L (45-117); Aspartate Amino Transferase 23 U/L (0-37); Blood Urea Nitrogen 13 MG/DL (7-18); Calcium 8.6 MG/DL (8.5-10.1); Glucose 133 MG/DL (74-106); Osmolality,Calculated 274.8 MOS/KG (273-304); Potassium 4.7 MMOL/L (3.5-5.1); Sodium 137 MMOL/L (136-145); Total Protein 6.3 G/DL (6.4-8.3)
[2017-08-29] MEDS: sitaGLIPtin 100 MG TABLET PO SCH (08:54)
[2017-08-29] MEDS: PANTOPRAZOLE 40 MG TABLET PO SCH (08:54)
[2017-08-29] MEDS: LISINOPRIL 2.5 MG TABLET PO SCH (08:54)
[2017-08-29] MEDS: FERROUS SULFATE 325 MG TABLET PO SCH (08:54)
[2017-08-29] MEDS: DOCUSATE SODIUM 100 MG CAPSULE PO SCH (08:54)
[2017-08-29] MEDS: CYANOCOBALAMIN 100 MCG TABLET PO SCH (08:54)
[2017-08-29] MEDS: MULTIVITAMIN (CENTRUM) TABLET PO SCH (08:54)
[2017-08-29] MEDS: CHLORHEXIDINE 0.12% ORAL RINSE 60 ML BOTTLE SWISH/SPIT SCH ×2 (09:02→20:37)
[2017-08-29] MEDS: AMIODARONE 200 MG TABLET PO SCH ×2 (11:10→20:32)
[2017-08-29] MEDS: APIXABAN 5 MG TABLET PO SCH ×2 (11:10→20:32)
[2017-08-29] MEDS: oxyCODONE/ACETAMINOPHEN 5-325 MG TABLET PO PRN ×2 (11:53→18:17)
[2017-08-29] MEDS: FUROSEMIDE 40 MG TABLET PO SCH (11:53)
[2017-08-29] MEDS: ALBUTEROL/IPRATROPIUM 3 ML NEB RESP TX SCH ×2 (13:56→20:20)
[2017-08-29] MEDS: ROSUVASTATIN 20 MG TABLET PO SCH (20:31)
[2017-08-29] MEDS: ASPIRIN EC 81 MG TABLET PO SCH (20:32)
[2017-08-30] MEDS: INSULIN REGULAR 100 UNIT/ML SUBCUT SCH ×6 (00:08→20:36)
[2017-08-30] MEDS: ALBUTEROL/IPRATROPIUM 3 ML NEB RESP TX SCH ×4 (01:02→19:28)
[2017-08-30] MEDS: MULTIVITAMIN (CENTRUM) TABLET PO SCH (08:26)
[2017-08-30] MEDS: DOCUSATE SODIUM 100 MG CAPSULE PO SCH (08:26)
[2017-08-30] MEDS: oxyCODONE/ACETAMINOPHEN 5-325 MG TABLET PO PRN (08:26)
[2017-08-30] MEDS: APIXABAN 5 MG TABLET PO SCH ×2 (08:26→21:35)
[2017-08-30] MEDS: FERROUS SULFATE 325 MG TABLET PO SCH (08:26)
[2017-08-30] MEDS: PANTOPRAZOLE 40 MG TABLET PO SCH (08:26)
[2017-08-30] MEDS: FUROSEMIDE 40 MG TABLET PO SCH (08:26)
[2017-08-30] MEDS: sitaGLIPtin 100 MG TABLET PO SCH (08:26)
[2017-08-30] MEDS: AMIODARONE 200 MG TABLET PO SCH ×2 (08:26→21:35)
[2017-08-30] MEDS: LISINOPRIL 5 MG TABLET PO SCH (08:26)
[2017-08-30] MEDS: CHLORHEXIDINE 0.12% ORAL RINSE 60 ML BOTTLE SWISH/SPIT SCH ×2 (08:27→21:34)
[2017-08-30] MEDS: CYANOCOBALAMIN 100 MCG TABLET PO SCH (08:27)
[2017-08-30] MEDS: CARVEDILOL 6.25 MG TABLET PO SCH ×2 (12:10→21:35)
[2017-08-30] MEDS: ROSUVASTATIN 20 MG TABLET PO SCH (21:35)
[2017-08-30] MEDS: ASPIRIN EC 81 MG TABLET PO SCH (21:36)
[2017-08-31] MEDS: INSULIN REGULAR 100 UNIT/ML SUBCUT SCH ×4 (00:13→11:28)
[2017-08-31] MEDS: ALBUTEROL/IPRATROPIUM 3 ML NEB RESP TX SCH ×2 (00:18→06:53)
[2017-08-31 07:40] VITALS: BP 147/74
[2017-08-31] MEDS: FERROUS SULFATE 325 MG TABLET PO SCH (09:08)
[2017-08-31] MEDS: CYANOCOBALAMIN 100 MCG TABLET PO SCH (09:08)
[2017-08-31] MEDS: AMIODARONE 200 MG TABLET PO SCH (09:08)
[2017-08-31] MEDS: LISINOPRIL 5 MG TABLET PO SCH (09:08)
[2017-08-31] MEDS: DOCUSATE SODIUM 100 MG CAPSULE PO SCH (09:08)
[2017-08-31] MEDS: PANTOPRAZOLE 40 MG TABLET PO SCH (09:08)
[2017-08-31] MEDS: FUROSEMIDE 40 MG TABLET PO SCH (09:08)
[2017-08-31] MEDS: MULTIVITAMIN (CENTRUM) TABLET PO SCH (09:09)
[2017-08-31] MEDS: CHLORHEXIDINE 0.12% ORAL RINSE 60 ML BOTTLE SWISH/SPIT SCH (09:09)
[2017-08-31] MEDS: sitaGLIPtin 100 MG TABLET PO SCH (09:09)
[2017-08-31] MEDS: APIXABAN 5 MG TABLET PO SCH (09:09)
[2017-08-31] MEDS: CARVEDILOL 6.25 MG TABLET PO SCH (09:09)
[2017-08-31 09:22] LABS: Basophils % 0.1 % (0.0-0.8); Eosinophils # 0.3 10*3/uL (0.0-0.87); Eosinophils % 1.9 % (0.00-10.9); Hematocrit 28.7 VOL% (42.0-52.0); Hemoglobin 9.3 GM/DL (14.0-18.0); Immature Granulocytes % 1.2 %; Immature Granulocytes Absolute 0.17 #; Lymphocytes # 1.5 10*3/uL (1.4-4.0); Lymphocytes % 10.7 % (21.2-54.2); Mean Corpuscular HGB Conc 32.4 GM/DL (32-36); Mean Corpuscular Hemoglobin 29 PG (27-34); Mean Corpuscular Volume 88.3 FL (87-102); Monocytes # 0.9 10*3/uL (0.11-0.8); Monocytes % 6.1 % (1.7-12.7); Neutrophils # 11.4 10*3/uL (1.4-7.4); Platelet Count 297 T/CUMM (130-400); Red Blood Count 3.25 MC/CUMM (3.8-5.5); Red Cell Distribution Width 16.1 % (9.3-17.3); White Blood Count 14.2 T/CUMM (4-12)
[2017-08-31 09:39] LABS: Calcium 9.1 MG/DL (8.5-10.1); Osmolality,Calculated 272.1 MOS/KG (273-304); Potassium 4.4 MMOL/L (3.5-5.1)
== END 2017-08-31 12:45 | disposition home health service (06) | DRG 233 ==
LOC: N.2W 09:37 → N.TELES 14:20 → N.2W 14:47 → N.TELES 16:57 → N.CVR 08-23 07:05 → N.TELES 08-24 08:29